=== PATIENT | male | born 1945 | race Caucasian/White ===

== ENCOUNTER → 2017-03-25 | Outpatient (CLI) | payer MEDICARE, OTHER | END | disposition home or self-care (01) | LOC: PCVCCLINIC 11:11 | PROVIDERS: ATTEND Internal Medicine Cardiovascular Disease | DX: I45.10 Unspecified right bundle-branch block (principal); I25.10 Atherosclerotic heart disease of native coronary artery without angina pectoris; E78.00 Pure hypercholesterolemia, unspecified; I83.92 Asymptomatic varicose veins of left lower extremity; Z86.718 Personal history of other venous thrombosis and embolism; Z79.82 Long term (current) use of aspirin; Z79.899 Other long term (current) drug therapy; Z87.891 Personal history of nicotine dependence | CPT/HCPCS: 80061; 93005; G0463 ==

== ENCOUNTER → 2017-04-08 | Outpatient (CLI) | payer MEDICARE, OTHER ==
--- NOTE | 2017-04-08 16:15 | PCVCIMAG ---
EXAM: LEFT SUPERFICIAL VENOUS DUPLEX INDICATION: Leg pain and swelling. FINDINGS: Left leg: No thrombus in the common femoral, main femoral, or popliteal veins. These veins are compressible. Left Great Saphenous Vein: At the saphenofemoral junction the diameter is 6.7 mm, in the mid thigh it is 6.0 mm, and in the calf it is 5.5 mm. There is significant venous insufficiency/reflux throughout. Venous insufficiency/reflux duration is 1.3 seconds. Left Small Saphenous Vein: At the saphenopopliteal junction the diameter is 4.2 mm, and in the calf it is 3.1 mm. There is not significant venous insufficiency/reflux throughout. Venous insufficiency/reflux duration is 0.3 seconds. There is not a cranial extension present. IMPRESSION: Left Great Saphenous Vein: Significant venous insufficiency/reflux is present as noted above. Left Small Saphenous Vein: No significant venous insufficiency/reflux is present as noted above. Incidental note is made of moderate venous insufficiency/reflux in the mid and lower left main femoral vein and left popliteal vein. LOC:[place] [id number]
== END | disposition home or self-care (01) ==
LOC: PCVCIMAG 13:24
PROVIDERS: ATTEND Internal Medicine Cardiovascular Disease
DX: I87.2 Venous insufficiency (chronic) (peripheral) (principal); Z86.718 Personal history of other venous thrombosis and embolism
CPT/HCPCS: 93971

== ENCOUNTER → 2017-10-14 | Outpatient (CLI) | payer MEDICARE, OTHER | END | disposition home or self-care (01) | LOC: PCVCIMAG 10:15 | DX: I25.10 Atherosclerotic heart disease of native coronary artery without angina pectoris (principal); E78.5 Hyperlipidemia, unspecified; Z86.718 Personal history of other venous thrombosis and embolism | CPT/HCPCS: 93325; 93351 ==

== ENCOUNTER → 2018-06-16 | Outpatient (CLI) | payer MEDICARE, OTHER | END | disposition home or self-care (01) | LOC: PCVCCLINIC 12:01 | PROVIDERS: ATTEND Internal Medicine Cardiovascular Disease | DX: I25.10 Atherosclerotic heart disease of native coronary artery without angina pectoris (principal); E78.00 Pure hypercholesterolemia, unspecified; I77.9 Disorder of arteries and arterioles, unspecified; I87.2 Venous insufficiency (chronic) (peripheral); R94.31 Abnormal electrocardiogram [ECG] [EKG]; F10.10 Alcohol abuse, uncomplicated; Z86.718 Personal history of other venous thrombosis and embolism; Z87.891 Personal history of nicotine dependence; Z79.899 Other long term (current) drug therapy; Z79.82 Long term (current) use of aspirin | CPT/HCPCS: 80061; 93005; G0463 ==

== ENCOUNTER → 2019-03-16 | Outpatient (CLI) | payer MEDICARE, OTHER ==
--- NOTE | 2019-03-16 12:03 | PCVCIMAG ---
APPROVED REPORT Study performed: 03/16/2019 10:39:23 Exam: Stress Echocardiogram Indication: CAD , Hyperlipidemia Patient Location: Echo lab Stress Nurse: Doris Currie RN Room #: 2 Status: routine Ht: 5 ft 11 in HR: 81 bpm BP: 144/78 mmHg Rhythm: RBBB Medical History Medical History: CAD non obstructive, Hyperlipidemia Cardiac Risk Factors: Hyperlipidemia Previous Cardiac Procedures: cath Pretest Chest Pain Characteristics: No chest pain Exercise History: Physically active Procedure The patient underwent an Exercise Stress Test using the Whitney Protocol. Blood pressure, heart rate, and EKG were monitored. An Echocardiogram was performed by multimedia technician in four stages in quad fashion. At peak stress, four selected images were obtained and placed side by side with resting images for comparison. Stress Test Details Stress Test: Exercise stress testing was performed using a Whitney protocol. HR Resting HR: 81 bpmMax Heart Rate (APMHR): 149 bpm Max HR Achieved: 150 bpmTarget HR (85% APMHR): 126 bpm % of APMHR: 100 Recovery HR: 88 bpm HR response to stress: Normal HR response to stress BP Resting BP: 144/78 mmHg Max BP: 176/64 mmHg Recovery BP: 140/78 mmHg BP response to stress: Normal blood pressure response to stress. ECG Resting ECG: RBBB Stress ECG: RBBB ST Change: Nondiagnostic Arrhythmia: APC's, rare Pvcs Recovery ECG: Sinus Rhythm, RBBB Recovery ST Change: Non-ischemic Recovery Arrhythmia: None Clinical Reason for Termination: Dyspnea Stress Symptoms: Dyspnea Exercise duration: 9 min 00 sec Highest Stage Achieved: Stage 3: 3.4 mph at 14% grade. Exercise capacity: 10.1 METs Overall Exercise Capacity for Age: Good Scale: Active Angina Score: None No complications. Stress ECG Conclusion The patient exercised according to the WHITNEY protocol for 9:00 mins; achieving a work level of 10.1 METS. The resting heart rate of 81 bpm danitza to a maximum heart rate of 150 bpm. This value represent 100% of the maximal, age-predicted heart rate. The resting blood pressure of 144/78 mmHg, danitza to a maximum blood pressure of 176/64 mmHg. The exercise test was stopped due to fatigue and dyspnea. Pre-Stress Echo The resting Echocardiogram showed normal left ventricular contractility with an estimated Ejection Fraction of about 55-60%. Normal wall motion in all segments on baseline images. Post-Stress Echo The stress Echocardiogram showed normal left ventricular contractility with an estimated Ejection Fraction of about 65-70%. Normal augmentation of wall motion in all segments on post stress images. Clinical No clinical or ECG evidence for ischemia. Conclusion Clinical Response: Non-ischemic Exercise Capacity: Average Stress ECG Response: Non-ischemic Stress Echo Images: Non-ischemic
== END | disposition home or self-care (01) ==
LOC: PCVCIMAG 10:18
PROVIDERS: ATTEND Internal Medicine Cardiovascular Disease
DX: I25.10 Atherosclerotic heart disease of native coronary artery without angina pectoris (principal); E78.00 Pure hypercholesterolemia, unspecified; Z87.891 Personal history of nicotine dependence
CPT/HCPCS: 93325; 93351